=== PATIENT | female | born 1995 | race Caucasian/White ===

== ENCOUNTER 2017-01-29 12:21 | Emergency (ER) | payer OTHER ==
[2017-01-29 12:34] VITALS: BP 134/82
[2017-01-29 13:10] LABS: Urine Bilirubin Negative (Negative); Urine Glucose Negative (Negative); Urine Nitrite Negative (Negative)
== END 2017-01-29 14:54 | disposition left against medical advice (07) ==
LOC: ED 12:21
DX: R10.9 Unspecified abdominal pain (principal)
CPT/HCPCS: 81003; 99282

== ENCOUNTER 2017-05-02 16:08 | Emergency (ER) | payer SELFPAY ==
[2017-05-02 16:57] VITALS: BP 137/76
--- NOTE | 2017-05-02 17:26 | UC ---
Eye Complaint HPI - HPI Summary HPI Summary: 21 y/o female presents to the urgent care c/o LT eye pain with swelling sine 04/30/2017. S Pain has worsen since last night, 01/07. She took ibuprofen PO to alleviate symptoms. This morning she woke up with yellowish eye discharge in her eyelashes. Pt denies fever, visual disturbance, photophobia, SANTOS, URI, SOB, chest pain, N/V/D - History of Current Complaint Chief Complaint: UCEye Stated Complaint: EYE PAIN Time Seen by Provider: 05/02/17 17:19 Hx Obtained From: Patient Hx Last Menstrual Period: 03/25/17 ?: No Onset/Duration: Gradual Onset, Lasting Days - 3 days, Still Present, Worse Since - last night Timing: Constant Severity Initially: Mild Severity Currently: Moderate Pain Intensity: 8 Pain Scale Used: 0-10 Numeric Location of Injury: Eye Lid (upper) - Left upper eye lid with mild swelling and pain Character: Sharp Aggravating Factor(s): Blinking Alleviating Factor(s): Nothing Associated Signs And Symptoms: Positive: Drainage (Purulent) - yelowish discharge this morning when woke up, Swelling - mild. Negative: Fever - Risk Factors Penetrating Injury Risk Factor: Negative Acute Glaucoma Risk Factors: Negative Optic Artery Occlusion Risk Factors: Negative - Allergies/Home Medications Allergies/Adverse Reactions: Allergies Allergy/AdvReac Type Severity Reaction Status Date / Time Penicillins Allergy Mild Diarrhea Verified 04/11/16 09:24 Home Medications: Home Medications medroxyPROGESTERone TAB* [Provera TAB*] 10 mg PO SEE INSTRUCTIONS 05/02/17 [ History Confirmed 05/02/17] metFORMIN* [Glucophage 500 MG TAB *] 500 mg PO BID 05/02/17 [History Confirmed 05/02/17] PMH/Surg Hx/FS Hx/Imm Hx Previously Healthy: Yes Other Endocrine History: PCOS - Surgical History Surgical History: Yes Surgery Procedure, Year, and Place: D&C UTERINE POLUP REMOVED - Family History Known Family History: Positive: None - Pt denies PMHX Negative: Cardiac Disease, Hypertension, Blood Disorder - Social History Occupation: Employed Full-time Lives: With Family Alcohol Use: Occasionally Substance Use Type: None Smoking Status (MU): Light Every Day Tobacco Smoker Type: Cigarettes Amount Used/How Often: 1/2 PPD - QUIT SMOKING 7 WEEKS AGO Length of Time of Smoking/Using Tobacco: 4+ years Have You Smoked in the Last Year: Yes Review of Systems Constitutional: Negative Skin: Negative Eyes: Other - Left eye lid with swelling and pain ENT: Negative Respiratory: Negative Cardiovascular: Negative Gastrointestinal: Negative Genitourinary: Negative Motor: Negative Neurovascular: Negative Musculoskeletal: Negative Neurological: Negative Psychological: Negative Is Patient Immunocompromised?: No All Other Systems Reviewed And Are Negative: Yes Physical Exam Triage Information Reviewed: Yes Vital Signs: Initial Vital Signs Temp 98.0 F 05/02/17 16:50 Pulse 96 05/02/17 16:50 Resp 18 05/02/17 16:50 BP 137/76 05/02/17 16:50 Pulse Ox 100 05/02/17 16:50 - Additional Comments Vital Signs Reviewed: Yes General: Well appearing, well nourished obese female sitting in the examining table w/o any apparent pain distress Eyes: Positive: b/L Conjunctiva clear- Visual acuity: WNL,Visual doan: full to confrontation.mild periorbital soft tissue swelling at the latersal side of LT upper eyelid with erythema and white small pustule inside of eyelid, tender to palpation. PERRLA, EOMI intact w/out limitation or complaint of pain. eyelashes clear. mild tearing and yellowish drainage observed. No ciliary flush. No chemosis, No photophobia. Normal fundoscopic exam; no proptosis, exophthalmos, nystagmus. Rt eye lid WNL ENT: Positive: Normal ENT inspection, Hearing grossly normal, Pharynx normal, Nasal congestion, Nasal drainage - clear, TMs normal - B/L external ear canal clear , TM's WNL. Negative: Tonsillar swelling, Tonsillar exudate Neck: Positive: Supple, Nontender, No Lymphadenopathy Respiratory: Positive: Chest nontender, Lungs clear, Normal breath sounds, No respiratory distress Cardiovascular: Positive: RRR, No Murmur, Pulses Normal, Brisk Capillary Refill Abdomen Description: Positive: Nontender, No Organomegaly, Soft. Negative: CVA Tenderness (R), CVA Tenderness (L) Bowel Sounds: Positive: Present Musculoskeletal: Positive: Strength Intact, ROM Intact, No Edema Neurological Exam: Normal Psychological Exam: Normal Skin Exam: Normal Eye Complaint Course/Dx - Course Course Of Treatment: 21 y/o female presents to the urgent care c/o LT eye pain with swelling sine 04/30/2017. S Pain has worsen since last night, 01/07. She took ibuprofen PO to alleviate symptoms. This morning she woke up with yellowish eye discharge in her eyelashes. Pt denies fever, visual disturbance, photophobia, SANTOS, URI, SOB, chest pain, N/V/D. Hx obtained. Pt with a left eye lid hordeolum and Rt external ear canal cerumen impaction on examination. Pt Rx Erythormycin Ophthalmic Ointment. Pt advised to apply warm compresses and massage the eye with gentle pressure 4-5 times for 10-15min throughout the day. Then apply ABX and if not improvement of symptoms to f/u with well surveying engineer for further evaluation and treatment. Pt understood and agreed with plan of care. - Differential Dx/Diagnosis Differential Diagnosis/HQI/PQRI: Conjunctivitis, Foreign Body, Periorbital Cellulitis, Orbital Cellulitis, Other - hordeolum, Provider Diagnoses: 1- Left eye lid internal hordeolum. 2- Rt external ear canal with cerumen impaction. Discharge - Discharge Plan Condition: Stable Disposition: HOME Prescriptions: Carbamide Peroxide 6.5% OTIC* [DEBROX 6.5% Otic*] 5 drop RIGHT EAR BID #1 bottle Erythromycin OPTH OINT* [Erythromycin 0.5% OPTH OINT*] 1 applic LEFT EYE TID #1 ophth.oint Ibuprofen TAB* [Motrin TAB* 800 MG] 800 mg PO Q6H PRN #20 tab PRN Reason: Pain Patient Education Materials: Cerumen Impaction (ED), Stye (ED) Referrals: [facility] [Outside] - If Needed Franklyn Alanis MD [Medical Doctor] - If Needed Additional Instructions: 1-Please apply ophthalmic ointment in your LF eye as directed. Please apply warm compresses and massage the eye with gentle pressure 4-5 times for 10-15min throughout the day 2- If you do not improve or if symptoms worsen please f/u with well surveying engineer for further evaluation and treatment 3- apply otic drops on the RT ear canal as directed to clear your ear canal
== END 2017-05-02 17:45 | disposition home or self-care (01) ==
LOC: UCEAST 16:08
DX: H00.014 Hordeolum externum left upper eyelid (principal); F17.210 Nicotine dependence, cigarettes, uncomplicated; H61.21 Impacted cerumen, right ear
CPT/HCPCS: 99212; G0463

== ENCOUNTER 2018-07-13 21:51 | Emergency (ER) | payer SELFPAY ==
[2018-07-13] MEDS ORDERED: Metoclopramide IV* 5 MG/ML 2 ML VIAL IV SLOW PU ONE (22:09)
[2018-07-13] MEDS ORDERED: Ketorolac INJ* 30 MG/ML 1 ML VIAL IV PUSH ONE (22:10)
[2018-07-13] MEDS ORDERED: NS 0.9% 1000 ML** 1,000 ML IV ONE ×2 (22:10→22:55)
[2018-07-13] MEDS ORDERED: Morphine VIAL* 10 MG/ML 1 ML VIAL IV ONE (22:11)
--- NOTE | 2018-07-13 22:11 | ED ---
Abdominal Pain/Female - HPI Summary HPI Summary: This patient is a 22 year old F presenting to [facility] with a chief complaint of R flank pain that began at 1900 today. The patient rates the pain 10/10 in severity. Symptoms aggravated by nothing. Symptoms alleviated by nothing. Patient reports diaphoresis, nausea, and vomiting. Patient reports she has a history of kidney stones. - History of Current Complaint Chief Complaint: EDFlankPain Stated Complaint: VOMITING Time Seen by Provider: 07/13/18 22:05 Hx Obtained From: Patient Hx Last Menstrual Period: 03/25/17 ?: No Onset/Duration: Sudden Onset, Lasting Hours, Still Present Timing: Constant Severity Initially: Severe Severity Currently: Severe Pain Intensity: 10 Pain Scale Used: 0-10 Numeric Location: Flank Radiates: No Aggravating Factor(s): Nothing Alleviating Factor(s): Nothing Associated Signs and Symptoms: Positive: Diaphoresis, Nausea, Vomiting Allergies/Adverse Reactions: Allergies Allergy/AdvReac Type Severity Reaction Status Date / Time Penicillins Allergy Diarrhea Verified 07/13/18 21:55 PMH/Surg Hx/FS Hx/Imm Hx Previously Healthy: No Endocrine/Hematology History: Denies: Hx Diabetes, Hx Thyroid Disease Cardiovascular History: Denies: Hx Hypertension Respiratory History: Denies: Hx Asthma, Hx Chronic Obstructive Pulmonary Disease (COPD) GI History: Denies: Hx Ulcer - Surgical History Surgery Procedure, Year, and Place: D&C UTERINE POLUP REMOVED Infectious Disease History: No Infectious Disease History: Denies: Hx Clostridium Difficile, Hx Hepatitis, Hx Human Immunodeficiency Virus (HIV), Hx of Known/Suspected MRSA, Hx Shingles, Hx Tuberculosis, Hx Known/ Suspected VRE, Hx Known/Suspected VRSA, History Other Infectious Disease, Traveled Outside the [place] in Last 30 Days - Family History Known Family History: Negative: Cardiac Disease, Hypertension, Blood Disorder - Social History Occupation: Employed Full-time Lives: With Family Alcohol Use: Occasionally Hx Substance Use: No Substance Use Type: Reports: None Hx Tobacco Use: Yes Smoking Status (MU): Light Every Day Tobacco Smoker Type: Cigarettes Amount Used/How Often: 1/2 PPD - QUIT SMOKING 7 WEEKS AGO Length of Time of Smoking/Using Tobacco: 4+ years Have You Smoked in the Last Year: Yes Review of Systems Positive: Skin Diaphoresis Positive: Abdominal Pain, Vomiting, Nausea All Other Systems Reviewed And Are Negative: Yes Physical Exam - Summary Physical Exam Summary: VITAL SIGNS: Reviewed. GENERAL: Patient is a well-developed and nourished female who is lying comfortable in the stretcher. Patient is not in any acute respiratory distress. HEAD AND FACE: No signs of trauma. No ecchymosis, hematomas or skull depressions. No sinus tenderness. EYES: PERRLA, EOMI x 2, No injected conjunctiva, no nystagmus. EARS: Hearing grossly intact. Ear canals and tympanic membranes are within normal limits. MOUTH: Oropharynx within normal limits. NECK: Supple, trachea is midline, no adenopathy, no JVD, no carotid bruit, no c- spine tenderness, neck with full ROM. CHEST: Symmetric, no tenderness at palpation LUNGS: Clear to auscultation bilaterally. No wheezing or crackles. CVS: Regular rate and rhythm, S1 and S2 present, no murmurs or gallops appreciated. ABDOMEN: Soft, R CVA tenderness and RLQ tenderness. No signs of distention. No rebound no guarding, and no masses palpated. Bowel sounds are normal. EXTREMITIES: FROM in all major joints, no edema, no cyanosis or clubbing. NEURO: Alert and oriented x 3. No acute neurological deficits. Speech is normal and follows commands. SKIN: Dry and warm Triage Information Reviewed: Yes Vital Signs On Initial Exam: Initial Vitals Temp Pulse Resp BP Pulse Ox 97.6 F 93 20 140/102 97 07/13/18 21:52 07/13/18 21:52 07/13/18 21:52 07/13/18 21:52 07/13/18 21:52 Vital Signs Reviewed: Yes Diagnostics - Vital Signs Vital Signs Temp Pulse Resp BP Pulse Ox 07/13/18 21:52 97.6 F 93 20 140/102 97 - Laboratory Result Diagrams: 07/13/18 22:27 07/13/18 22:27 Lab Statement: Any lab studies that have been ordered have been reviewed, and results considered in the medical decision making process. - CT CT Abdomen and Pelvis CT Interpretation Completed By: Radiologist Summary of CT Findings: CT abdomen and pelvis reveals, per radiologist, moderate right-sided hydronephrosis with a dilated ureter. Calcified lesion located in the right side of the pelvis which may be in the distal ureter. This calcified density was not seen on prior CT study of 11/26/2015. Multiple small. calcified stones located in the left kidney which are nonobstructing. The appendix is visualized and is normal in appearance. There is no abnormal bowel wall thickening suggesting enteritis or colitis. ED physician has reviewed this radiology report. Re-Evaluation - Re-Evaluation First Eval Re-Evaluation Time: 00:30 Comment: Discuss results of CT and plan for discharge. Abdominal Pain Fem Course/Dx - Course Course Of Treatment: This patient is a 22 year old F presenting to [facility] with a chief complaint of R flank pain that began at [address] abdomen and pelvis reveals, per radiologist, moderate right-sided hydronephrosis with a dilated ureter. Calcified lesion located in the right side of the pelvis which may be in the distal ureter. This calcified density was not seen on prior CT study of 11/26/2015. Multiple small. calcified stones located in the left kidney which are nonobstructing. The appendix is visualized and is normal in appearance. There is no abnormal bowel wall thickening suggesting enteritis or colitis. This patient will be discharged with instructions to follow up with urologist. Patient understands and agrees with this plan. - Diagnoses Differential Diagnosis: Positive: Other - colic urethral stone Provider Diagnoses: Urethral stone Discharge - Sign-Out/Discharge Documenting (check all that apply): Patient Departure - discharge Patient Received Moderate/Deep Sedation with Procedure: No - Discharge Plan Condition: Stable Disposition: HOME Prescriptions: Ibuprofen TAB* [Motrin TAB* 800 MG] 800 mg PO Q6H PRN #30 tab PRN Reason: Pain oxyCODONE/Acetamin 5/325 MG* [Percocet 5/325 TAB*] 1 tab PO Q6H PRN #10 tab MDD 4 PRN Reason: Pain Tamsulosin CAP* [Flomax CAP*] 0.4 mg PO BEDTIME #7 cap Patient Education Materials: Kidney Stones (ED) Forms: *Work Release Referrals: Antonio Quick MD [Medical Doctor] - (Follow up in 1-2 days.) Additional Instructions: RETURN TO THE EMERGENCY DEPARTMENT FOR CHANGING OR WORSENING SYMPTOMS. FOLLOW UP WITH DR. QUICK IN 1-2 DAYS. - Attestation Statements Document Initiated by Scribe: Yes Documenting Scribe: Eugenie Kaye Provider For Whom Scribe is Documenting (Include Credential): Dr. Abril Huddleston MD Scribe Attestation: I, Eugenie Kaye, scribed for Dr. Abril Huddleston MD on 07/14/18 at 0041. Status of Scribe Document: Ready
[2018-07-13 22:36] LABS: ABS Basophils 0 10^3/ul (0-0.2); ABS Eosinophils 0.1 10^3/ul (0-0.6); ABS Lymphocytes 1.1 10^3/ul (1.0-4.8); ABS Monocytes 0.6 10^3/ul (0-0.8); ABS Neutrophils 4.3 10^3/ul (1.5-7.7); ABS Nucleated RBC 0 10^3/ul; Eosinophil % 0.9 %; Hematocrit 41 % (35-47); Hemoglobin 13.5 g/dl (12.0-16.0); Mean Corpuscular HGB Conc 33 g/dl (31-36); Mean Corpuscular Hemoglobin 25 pg (27-31); Mean Corpuscular Volume 77 fL (80-97); Mean Platelet Volume 7.8 fL (7.4-10.4); Nucleated Red Blood Cells % 0; Platelet Count 230 10^3/ul (150-450); Red Blood Count 5.35 10^6/ul (4.00-5.40); Red Cell Distribution Width 14 % (10.5-15)
[2018-07-13 22:51] LABS: ALT 15 U/L (7-52); AST 18 U/L (13-39); Albumin 4.4 g/dL (3.2-5.2); Albumin/Globulin Ratio 1.4 (1-3); Alkaline Phosphatase 66 U/L (34-104); Amylase 24 U/L (29-103); Anion Gap 10 mmol/L (2-11); BUN/Creatinine Ratio 15.9 (8-20); Blood Urea Nitrogen 14 mg/dL (6-24); C Reactive Protein 12.98 mg/L (<8.01); CO2 Carbon Dioxide 24 mmol/L (22-32); Calcium 9.5 mg/dL (8.6-10.3); Chloride 107 mmol/L (101-111); EGFR African American 95.5 (>60); EGFR Non-African American 78.9 (>60); Globulin 3.2 g/dL (2-4); Glucose 107 mg/dL (70-100); Potassium 3.5 mmol/L (3.5-5.0); Sodium 141 mmol/L (135-145); Total Protein 7.6 g/dL (6.4-8.9)
[2018-07-13 22:57] LABS: HCG Pregnancy < 0.60 mIU/mL
[2018-07-13] MEDS ORDERED: Tamsulosin CAP* 0.4 MG PO ONE (23:45)
[2018-07-14 00:09] LABS: Urine Appearance Cloudy; Urine Bacteria Absent (Absent); Urine Bilirubin Negative (Negative); Urine Blood 3+ (Negative); Urine Color Amber; Urine Glucose Negative (Negative); Urine Ketones 1+ (Negative); Urine Nitrite Negative (Negative); Urine Protein 2+(100 mg/dL) (Negative); Urine Red Blood Cell 3+(>10/hpf) (Absent); Urine Specific Gravity 1.029 (1.010-1.030); Urine Squamous Epithelial Cell Present (Absent); Urine Urobilinogen Negative (Negative); Urine White Blood Cell Absent (Absent)
[2018-07-14 01:00] VITALS: BP 117/73
[2018-07-14] MEDS ORDERED: oxyCODONE/Acetamin 5/325 MG* TAB PO PRN (01:01)
[2018-07-14] MEDS ORDERED: oxyCODONE/Acetamin 5/325 MG* TAB ONE (01:04)
[2018-07-14] MEDS ORDERED: oxyCODONE TAB* 5 MG TAB PO PRN (01:09)
== END 2018-07-14 01:18 | disposition home or self-care (01) ==
LOC: ED 21:51
DX: N21.1 Calculus in urethra (principal); R61 Generalized hyperhidrosis; R11.2 Nausea with vomiting, unspecified; Z88.0 Allergy status to penicillin; Z87.891 Personal history of nicotine dependence
CPT/HCPCS: 36415; 74176; 80053; 81003; 81015; 82150; 83690; 84702; 85025; 86140; 96361; 96374; 96375; 99283; A9270-GY; J1885; J2270; J2765

== ENCOUNTER 2018-10-03 17:53 | Emergency (ER) | payer OTHER ==
[2018-10-03 18:35] VITALS: BP 116/78
--- NOTE | 2018-10-03 19:27 | UC ---
Hand/Wrist HPI - HPI Summary HPI Summary: 23-year-old female comes in with a chief complaint of right hand pain. 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 Her pain is primarily at the third knuckle. Patient has pain with attempted ecstatic extension and flexion of her fingers but mostly her second and third fingers. Denies any wrist pain is no skin break. No complaint of any numbness. - History Of Current Complaint Chief Complaint: UCUpperExtremity Stated Complaint: R HAND INJURY WC Time Seen by Provider: 10/03/18 19:15 Hx Last Menstrual Period: 09/11/18 Pain Intensity: 8 - Allergies/Home Medications Allergies/Adverse Reactions: Allergies Allergy/AdvReac Type Severity Reaction Status Date / Time Penicillins Allergy Diarrhea Verified 10/03/18 18:35 Home Medications: Home Medications NK [No Home Medications Reported] 10/03/18 [History Confirmed 10/03/18] PMH/Surg Hx/FS Hx/Imm Hx Previously Healthy: Yes - Surgical History Surgical History: Yes Surgery Procedure, Year, and Place: D&C UTERINE POLUP REMOVED - Family History Known Family History: Negative: Cardiac Disease, Hypertension, Blood Disorder - Social History Alcohol Use: Occasionally Substance Use Type: None Smoking Status (MU): Light Every Day Tobacco Smoker Type: Cigarettes Amount Used/How Often: 1/2 PPD - QUIT SMOKING 7 WEEKS AGO Length of Time of Smoking/Using Tobacco: 4+ years Have You Smoked in the Last Year: Yes Review of Systems All Other Systems Reviewed And Are Negative: Yes Constitutional: Positive: Negative Skin: Positive: Negative Eyes: Positive: Negative ENT: Positive: Negative Respiratory: Positive: Negative Cardiovascular: Positive: Negative Gastrointestinal: Positive: Negative Motor: Positive: Decreased ROM Neurovascular: Positive: Negative Musculoskeletal: Positive: Other: - SEE HPI Neurological: Positive: Negative Psychological: Positive: Negative Is Patient Immunocompromised?: No Physical Exam Triage Information Reviewed: Yes Appearance: Well-Appearing, Well-Nourished, Pain Distress - MILD WITH RT HAND ROM Vital Signs: Initial Vital Signs Temp 98.0 F 10/03/18 18:31 Pulse 70 10/03/18 18:31 Resp 18 10/03/18 18:31 BP 116/78 10/03/18 18:31 Pulse Ox 100 10/03/18 18:31 Vital Signs Reviewed: Yes Eye Exam: Normal Eyes: Positive: Conjunctiva Clear Neck: Positive: Supple Respiratory: Positive: No respiratory distress Musculoskeletal: Positive: Other: - Right hand is tender to palpation over the dorsum of the second third MCPs. Wrist is nontender with full range of motion. Patient's unable to fully extend or fully flex her second third fingers. There is no skin break. No sensation deficit. Tendons are appear intact on exam. Neurological: Positive: Alert Psychological Exam: Normal Psychological: Positive: Age Appropriate Behavior Skin Exam: Normal Hand/Wrist Course/Dx - Course Course Of Treatment: I discussed the x-rays with the patient. I do not see any fractures radiologist reading is pending. Appears the patient has sprained her tendons primarily to her third finger. Patient was splinted the second and third fingers by nursing patient neurovascular intact after placement of splint. Plan is ice anti-inflammatories elevation the splint and follow-up with orthopedics if there is any fracture seen by radiology or if the patient does not improve. - Differential Dx/Diagnosis Provider Diagnosis: Sprain of right hand, Right hand tendonitis Discharge - Sign-Out/Discharge Documenting (check all that apply): Patient Departure All imaging exams completed and their final reports reviewed: No - Discharge Plan Condition: Stable Disposition: HOME Patient Education Materials: Hand Sprain (ED) Forms: *Work Release Referrals: Sarah Santoro MD [Medical Doctor] - Additional Instructions: FOLLOW UP WITH ORTHOPEDICS IF NOT COMPLETELY IMPROVED. GET REEVALUATED SOONER IF YOUR CONDITION WORSENS OR ANY QUESTIONS OR CONCERNS. - Billing Disposition and Condition Condition: STABLE Disposition: Home
--- NOTE | 2018-10-04 12:55 | UC ---
- Progress Note Progress Note: RADIOLOGY REPORT REVIEWED. NO EVIDENCE FOR FRACTURE. NO CHANGE IN MGMT. Course/Dx - Diagnoses Provider Diagnoses: Sprain of right hand, Right hand tendonitis Discharge - Sign-Out/Discharge Documenting (check all that apply): Post-Discharge Follow Up All imaging exams completed and their final reports reviewed: Yes - Discharge Plan Condition: Stable Disposition: HOME Patient Education Materials: Hand Sprain (ED) Forms: *Work Release Referrals: Sarah Santoro MD [Medical Doctor] - Additional Instructions: FOLLOW UP WITH ORTHOPEDICS IF NOT COMPLETELY IMPROVED. GET REEVALUATED SOONER IF YOUR CONDITION WORSENS OR ANY QUESTIONS OR CONCERNS. - Billing Disposition and Condition Condition: STABLE Disposition: Home
== END 2018-10-03 19:30 | disposition home or self-care (01) ==
LOC: UCEAST 17:53
DX: S63.91XA Sprain of unspecified part of right wrist and hand, initial encounter (principal); W31.82XA Contact with other commercial machinery, initial encounter; Y93.G1 Activity, food preparation and clean up; Y92.9 Unspecified place or not applicable; Y99.0 Civilian activity done for income or pay; M77.9 Enthesopathy, unspecified; Z88.0 Allergy status to penicillin; F17.210 Nicotine dependence, cigarettes, uncomplicated
CPT/HCPCS: 99211; G0463

== ENCOUNTER 2018-12-01 11:01 | Emergency (ER) | payer SELFPAY ==
[2018-12-01 11:11] VITALS: BP 108/63
--- NOTE | 2018-12-01 11:29 | UC ---
Ear Complaint HPI - HPI Summary HPI Summary: 2 days after swimming noticed R ear pain. Concerned for infection or block. denies change in hearing. . - History of Current Complaint Chief Complaint: UCEar Stated Complaint: EAR ACHE Time Seen by Provider: 12/01/18 11:29 Hx Obtained From: Patient Hx Last Menstrual Period: 11/30/18 Pain Intensity: 6 Pain Scale Used: 0-10 Numeric Aggravating Factors: Nothing Alleviating Factors: Nothing Associated Signs/Symptoms: Negative: Hearing Loss, Trauma to Ear, URI Symptoms - Allergies/Home Medications Allergies/Adverse Reactions: Allergies Allergy/AdvReac Type Severity Reaction Status Date / Time Penicillins Allergy Diarrhea Verified 12/01/18 11:12 PMH/Surg Hx/FS Hx/Imm Hx - Additional Past Medical History Additional PMH: no chronic conditions. Previously Healthy: Yes - Surgical History Surgical History: Yes Surgery Procedure, Year, and Place: D&C UTERINE POLUP REMOVED - Family History Known Family History: Negative: Cardiac Disease, Hypertension, Blood Disorder - Social History Alcohol Use: Occasionally Substance Use Type: None Smoking Status (MU): Light Every Day Tobacco Smoker Type: Cigarettes Amount Used/How Often: 1/2 PPD - QUIT SMOKING 7 WEEKS AGO Length of Time of Smoking/Using Tobacco: 4+ years Have You Smoked in the Last Year: Yes Review of Systems All Other Systems Reviewed And Are Negative: Yes Constitutional: Negative: Fever ENT: Positive: Ear Ache - R. Negative: Dental Pain, Sore Throat Respiratory: Positive: Negative Cardiovascular: Positive: Negative Gastrointestinal: Positive: Negative Neurological: Negative: Headache Physical Exam Triage Information Reviewed: Yes Appearance: Well-Appearing Vital Signs: Initial Vital Signs Temp 98.1 F 12/01/18 11:05 Pulse 77 12/01/18 11:05 Resp 17 12/01/18 11:05 BP 108/63 12/01/18 11:05 Pulse Ox 100 12/01/18 11:05 Vital Signs Reviewed: Yes ENT: Positive: TMs normal - left is normal., Other - R TM normal w/ canal showing inflammation/redness. pain upon insertion of otoscope. Neck: Positive: Supple, Nontender, No Lymphadenopathy Ear Complaint Course/Dx - Course Course Of Treatment: R ear pain, acute. Upon examination there was inflammation pointing towards OE. Will give topical antibx. Vitals are good. - Differential Dx/Diagnosis Differential Diagnosis/HQI/PQRI: Barotrauma, Cerumen Impaction, Otitis Externa Provider Diagnosis: Right otitis externa Discharge - Sign-Out/Discharge Documenting (check all that apply): Patient Departure All imaging exams completed and their final reports reviewed: No Studies - Discharge Plan Condition: Good Disposition: HOME Prescriptions: Neomyc/Polym/HC 1% OTIC SUSP* [Cortisporin Otic Susp 1%*] 4 drop RIGHT EAR TID 7 Days #1 btl Patient Education Materials: Otitis Externa (ED) Referrals: [facility] [Outside] Additional Instructions: please follow up with your primary care if not improved. - Billing Disposition and Condition Condition: GOOD Disposition: Home
== END 2018-12-01 11:50 | disposition home or self-care (01) ==
LOC: UCEAST 11:01
DX: H60.91 Unspecified otitis externa, right ear (principal); F17.210 Nicotine dependence, cigarettes, uncomplicated; Z88.0 Allergy status to penicillin
CPT/HCPCS: 99212; G0463

== ENCOUNTER 2019-05-11 16:08 | Emergency (ER) | payer SELFPAY ==
[2019-05-11 16:29] VITALS: BP 115/70
--- NOTE | 2019-05-11 17:05 | UC ---
FLU HPI - HPI Summary HPI Summary: 23-year-old female presents with onset of general malaise, severe nasal congestion, runny nose, bilateral ear fullness, sore throat, chest tightness, and a productive cough yesterday. No history of asthma. Patient is a smoker. No known sick contact. Has not received her flu shot. Denies fever, chills, dysphagia, chest pain, palpitations, shortness of breath, abdominal pain, nausea , vomiting or diarrhea. - History of Current Complaint Chief Complaint: UCRespiratory Stated Complaint: URI Time Seen by Provider: 05/11/19 16:50 Hx Obtained From: Patient Hx Last Menstrual Period: 2 weeks ago Pain Intensity: 7 - Allergy/Home Medications Allergies/Adverse Reactions: Allergies Allergy/AdvReac Type Severity Reaction Status Date / Time Penicillins Allergy Diarrhea Verified 05/11/19 16:25 PMH/Surg Hx/FS Hx/Imm Hx Previously Healthy: Yes - Denies significant PMH - Surgical History Surgical History: Yes Surgery Procedure, Year, and Place: D&C UTERINE POLUP REMOVED - Family History Known Family History: Positive: Non-Contributory - Social History Occupation: Employed Full-time Lives: With Family Alcohol Use: Occasionally Substance Use Type: Marijuana Substance Use Comment - Amount & Last Used: daily Smoking Status (MU): Light Every Day Tobacco Smoker Type: Cigarettes Amount Used/How Often: 1/2 PPD - QUIT SMOKING 7 WEEKS AGO Length of Time of Smoking/Using Tobacco: 4+ years Have You Smoked in the Last Year: Yes Review of Systems All Other Systems Reviewed And Are Negative: Yes Constitutional: Negative: Fever, Chills Eyes: Negative: Drainage, Eye Redness ENT: Positive: Sore Throat, Ear Ache, Nasal Discharge, Sinus Congestion. Negative: Sinus Pain/Tenderness Respiratory: Positive: Cough. Negative: Shortness Of Breath Cardiovascular: Negative: Palpitations, Chest Pain Gastrointestinal: Negative: Abdominal Pain, Vomiting, Diarrhea, Nausea Genitourinary: Positive: Negative Musculoskeletal: Positive: Negative Neurological: Positive: Negative Is Patient Immunocompromised?: No Physical Exam - Summary Physical Exam Summary: GENERAL APPEARANCE: Well developed, well nourished, alert and cooperative, and appears to be in no acute distress. EYES: Conjunctiva clear. No drainage. EARS: External auditory canals and tympanic membranes clear, hearing grossly intact. NOSE: Moderate nasal congestion. Clear nasal discharge. THROAT: Pharyngeal erythema. No tonsilar inflammation, swelling, exudate, or lesions. Uvula midline. NECK: Neck supple, non-tender without lymphadenopathy. CARDIAC: Normal S1 and S2. No S3, S4 or murmurs. Rhythm is regular. There is no peripheral edema, cyanosis or pallor. Extremities are warm and well perfused. Capillary refill is less than 2 seconds. Peripheral pulses intact. LUNGS: Intermediate scattered wheezes bilaterally. No rales or rhonchi noted. Nonproductive cough. ABDOMEN: Positive bowel sounds. Soft, nondistended, nontender. No guarding or rebound. No masses or hepatosplenomegally. MUSKULOSKELETAL: ROM intact to all extremities. No joint erythema or tenderness. Normal muscular development. Normal gait. SKIN: Skin normal color, texture and turgor with no lesions or eruptions. Triage Information Reviewed: Yes Vital Signs: Initial Vital Signs Temp 98.3 F 05/11/19 16:25 Pulse 90 05/11/19 16:25 Resp 18 05/11/19 16:25 BP 115/70 05/11/19 16:25 Pulse Ox 99 05/11/19 16:25 Vital Signs Reviewed: Yes Flu Course/Dx - Course Course Of Treatment: 23-year-old female presents with onset of general malaise, severe nasal congestion, runny nose, bilateral ear fullness, sore throat, chest tightness, and a productive cough yesterday. No history of asthma. Patient is a smoker. No known sick contact. Has not received her flu shot. Denies fever, chills, dysphagia, chest pain, palpitations, shortness of breath, abdominal pain, nausea , vomiting or diarrhea. Afebrile. Vital signs stable. Patient hasn't moderate nasal congestion, clear nasal discharge, pharyngeal erythema without tonsillar swelling or exudate, no cervical lymphadenopathy, intermittent scattered bilateral wheezes, nonproductive cough, and otherwise unremarkable exam. Rapid flu test was negative. Recommending conservative treatment for a viral upper respiratory infection including albuterol inhaler 2 puffs every 4-6 hours as needed for shortness of breath or wheezing and Tessalon Perles one capsule every 8 hours as needed for cough. Patient is to return here or follow up with their primary care provider in 5-7 days if symptoms are not improving. Anticipatory guidance and warning symptoms are reviewed with the patient. Verbalizes understanding and agrees of care. - Differential Dx/Diagnosis Differential Diagnosis/HQI/PQRI: Bronchitis, Influenza, Pneumonia, Upper Respiratory Infection Provider Diagnosis: Viral URI Discharge ED - Sign-Out/Discharge Documenting (check all that apply): Patient Departure All imaging exams completed and their final reports reviewed: No Studies - Discharge Plan Condition: Stable Disposition: HOME Prescriptions: Albuterol HFA INHALER* [Ventolin HFA Inhaler*] 2 puff INH Q4H PRN #1 mdi PRN Reason: Sob/Wheezing Benzonatate CAP* [Tessalon 100 MG CAP*] 100 mg PO TID PRN #21 cap PRN Reason: Cough Patient Education Materials: Upper Respiratory Infection (ED) Forms: *Work Release Referrals: No Primary Care Phys,NOPCP [Primary Care Provider] - Additional Instructions: The rapid flu test performed in the clinic today was negative. Your history and exam are consistent with a viral upper respiratory infection. Viral infections do not respond to antibiotics and are limited to the treatment of symptoms. Viral infections typically run their course in 7-10 days. Drink plenty of fluids to avoid dehydration especially if you are running any fever. Use albuterol inhaler 2 puff every 4-6 hours as needed for shortness of breath, chest tightness, or wheezing. Use Tessalon Perles 1 capsule every 8 hours as needed for cough. Use an over the counter decongestant such as Sudafed according to directions as needed for congestion. Take over the counter acetaminophen (Tylenol) or ibuprofen (Advil, Motrin) according to directions as needed for pain or fever. Use salt water gargles several times a day if you have a sore throat. You may also use Chloraseptic spray or Cepacol lonzenges according to directions which contain a numbing medication and can provide some temporary relief from your sore throat. Follow up with your primary care provider in 5-7 days if symptoms persist. Seek immediate medical attention in the emergency room if you have fever greater than 100.5 F despite taking acetaminophen or ibuprofen, have chest pain , difficulty breathing, are unable to swallow, or have any worsening of symptoms. - Billing Disposition and Condition Condition: STABLE Disposition: Home - Attestation Statements Provider Attestation: Per institutional requirements, I have reviewed the chart, however, I was not consulted specifically or made aware of this patient by the midlevel provider. I did not personally evaluate, interact with , or disposition this patient.
[2019-05-11 17:11] LABS: Influenza A Molecular NEGATIVE (Negative); Influenza B Molecular NEGATIVE (Negative)
== END 2019-05-11 17:40 | disposition home or self-care (01) ==
LOC: UCEAST 16:08
DX: J06.9 Acute upper respiratory infection, unspecified (principal); J02.9 Acute pharyngitis, unspecified; R07.89 Other chest pain; H93.8X3 Other specified disorders of ear, bilateral; F17.210 Nicotine dependence, cigarettes, uncomplicated; Z88.0 Allergy status to penicillin
CPT/HCPCS: 99212; G0463

== ENCOUNTER 2019-07-22 12:13 | Emergency (ER) | payer MEDICAID ==
[2019-07-22 12:43] LABS: ABS Eosinophils 0.1 10^3/ul (0-0.6); ABS Monocytes 0.6 10^3/ul (0-0.8); ABS Neutrophils 5.1 10^3/ul (1.5-7.7); Eosinophil % 1.9 %; Hematocrit 40 % (35-47); Hemoglobin 13.2 g/dL (12.0-16.0); Mean Corpuscular HGB Conc 33 g/dL (31-36); Mean Corpuscular Hemoglobin 26 pg (27-31); Mean Corpuscular Volume 79 fL (80-97); Mean Platelet Volume 7.9 fL (7.4-10.4); Platelet Count 222 10^3/uL (150-450); Red Blood Count 5.09 10^6 /uL (3.70-4.87); Red Cell Distribution Width 14 % (10-15)
--- NOTE | 2019-07-22 12:44 | ED ---
- HPI Summary HPI Summary: This pt is a 23 Y/O F presenting to [facility] with a CC of darkened blood following a pap smear. She received her pap smear yesterday and states that she was told to expect some bleeding. This morning, when she woke up the blood was darker and much thicker than the prior day. She states that she has suprapubic tenderness that is rated a 3/10 in severity. She states that she is currently 8 weeks . She denies any vaginal discharge. She also denies any fevers, chills, headaches, N/V, and CP. She has a Hx of kidney stones. She has no aggravating or alleviating factors. She states that this is her first and currently has a GPA of 1,0,0. - History of Current Complaint Chief Complaint: EDOBProblems Stated Complaint: 8 WEEKS PREG BLEEDING Time Seen by Provider: 07/22/19 12:17 Hx Obtained From: Patient Chief Complaint: Vaginal Bleeding Onset/Duration: Started Hours Ago - when she woke up, Still Present Timing: Constant Severity: Mild Current Severity: Mild Pain Intensity: 3 Location of Pain: Suprapubic Character: Cramping Aggravating Factors: Nothing Alleviating Factors: Nothing Associated Signs and Symptoms: Positive: Negative - fevers, chills, headaches, N /V, and CP, Vaginal Bleeding or Discharge. Negative: Fever - Assessment Hx Now: Yes - 6 weeks - Allergies/Home Medications Allergies/Adverse Reactions: Allergies Allergy/AdvReac Type Severity Reaction Status Date / Time Penicillins Allergy Diarrhea Verified 05/11/19 16:25 Home Medications: Home Medications Albuterol HFA INHALER* [Ventolin HFA Inhaler*] 2 puff INH Q4H PRN #1 mdi [Rx] Benzonatate CAP* [Tessalon 100 MG CAP*] 100 mg PO TID PRN #21 cap 05/11/19 [Rx] PMH/Surg Hx/FS Hx/Imm Hx Previously Healthy: Yes Endocrine/Hematology History: Denies: Hx Diabetes, Hx Thyroid Disease Cardiovascular History: Denies: Hx Hypertension Respiratory History: Denies: Hx Asthma, Hx Chronic Obstructive Pulmonary Disease (COPD) GI History: Denies: Hx Ulcer - Cancer History Hx Chemotherapy: No Hx Radiation Therapy: No - Surgical History Surgical History: Yes Surgery Procedure, Year, and Place: D&C UTERINE POLUP REMOVED - Immunization History Immunizations Up to Date: Yes Infectious Disease History: No Infectious Disease History: Denies: Hx Clostridium Difficile, Hx Hepatitis, Hx Human Immunodeficiency Virus (HIV), Hx of Known/Suspected MRSA, Hx Shingles, Hx Tuberculosis, Hx Known/ Suspected VRE, Hx Known/Suspected VRSA, History Other Infectious Disease, Traveled Outside the [place] in Last 30 Days - Family History Known Family History: Negative: Cardiac Disease, Hypertension - Social History Occupation: Employed Full-time Lives: With Family Alcohol Use: Occasionally Hx Substance Use: No Substance Use Type: Reports: Marijuana Substance Use Comment - Amount & Last Used: daily Hx Tobacco Use: Yes Smoking Status (MU): Light Every Day Tobacco Smoker Type: Cigarettes Amount Used/How Often: 1/2 PPD - QUIT SMOKING 7 WEEKS AGO Length of Time of Smoking/Using Tobacco: 4+ years Have You Smoked in the Last Year: Yes Review of Systems Negative: Fever, Chills Negative: Chest Pain Positive: Abdominal Pain - suprapubic. Negative: Vomiting, Nausea Genitourinary: Other - Vaginal bleeding Negative: Headache All Other Systems Reviewed And Are Negative: Yes Physical Exam - Summary Physical Exam Summary: Constitutional: Well-developed, Well-nourished, Alert. (-) Distressed Skin: Warm, Dry HENT: Normocephalic; Atraumatic Eyes: Conjunctiva normal Neck: Musculoskeletal ROM normal neck. (-) JVD, (-) Stridor, (-) Tracheal deviation Cardio: Rhythm regular, rate normal, Heart sounds normal; Intact distal pulses; Radial pulses are 2+ and symmetric. (-) Murmur Pulmonary/Chest wall: Effort normal. (-) Respiratory distress, (-) Wheezes, (-) Rales Abd: Soft, (-) tenderness, (-) Distension, (-) Guarding, (-) Rebound Musculoskeletal: (-) Edema Lymph: (-) Cervical adenopathy Neuro: Alert, Oriented x3 Psych: Mood and affect Normal Pelvic Exam: Mild amount of blood in the vaginal vault, No tenderness below the cervix - Physical Exam Triage Information Reviewed: Yes Vital Signs On Initial Exam: Temp Pulse Resp BP SpO2 FiO2 97.9 F 84 16 121/80 100 07/22/19 12:20 07/22/19 12:20 07/22/19 12:20 07/22/19 12:20 07/22/19 12:20 Vital Signs Reviewed: Yes Procedures - Sedation Patient Received Moderate/Deep Sedation with Procedure: No Diagnostics - Vital Signs Vital Signs Temp Pulse Resp BP Pulse Ox 07/22/19 12:20 97.9 F 84 16 121/80 100 - Laboratory Result Diagrams: 07/22/19 12:34 07/22/19 12:34 Lab Statement: Any lab studies that have been ordered have been reviewed, and results considered in the medical decision making process. - Ultrasound US Ultrasound Interpretation Completed By: Radiologist Summary of Ultrasound Findings: Impression: 1. Single live intrauterine estation at 9 weeks, 2 days by crown-rump length. 2. Small subchronic hemorrhage. ED physician has reviewed this report. Re-Evaluation - Re-Evaluation First Eval Re-Evaluation Time: 14:15 Comment: Pelvic exam performed. Patient safe for d/c. All results discussed. Course/Dx - Course Course Of Treatment: Patient is here with worsening vaginal bleeding following a Pap smear yesterday. Patient is 8 weeks and has not had an ultrasound yet to confirm her . Patient had blood cultures performed showed no evidence of anemia. Patient is Rh+. Patient had an ultrasound which showed an IUP of roughly 9 weeks that is viable. Patient's cervix was closed on pelvic exam. Patient was educated on pelvic rest and following up with her GEOLOGY TEACHER. - Diagnoses Provider Diagnoses: Intrauterine , Vaginal bleeding Discharge ED - Sign-Out/Discharge Documenting (check all that apply): Patient Departure - Patient will be discharged home. - Discharge Plan Condition: Stable Disposition: HOME Patient Education Materials: Non-Threatening First Trimester Vaginal Bleed (ED) , at 7 to 10 Weeks (ED) Referrals: Ryan Jerry MD [Primary Care Provider] - 3 Days Additional Instructions: Please stay on pelvic rest until you are cleared by your GEOLOGY TEACHER. This means no penetration of any kind. Please come back to the emergency department if you are bleeding 1 pad per hour or more, you are experiencing abdominal pain, or there are any other concerning symptoms that appear. - Billing Disposition and Condition Condition: STABLE Disposition: Home - Attestation Statements Document Initiated by Scribe: Yes Documenting Scribe: Radha Hawthorne Provider For Whom Scribe is Documenting (Include Credential): Stanley Barber MD Scribe Attestation: I, Radha Hawthorne, scribed for Stanley Barber MD on 07/22/19 at 1816. Scribe Documentation Reviewed: Yes Provider Attestation: The documentation as recorded by the scribe, Radha Hawthorne accurately reflects the service I personally performed and the decisions made by me, Stanley Barber MD Status of Scribe Document: Viewed
[2019-07-22 12:59] LABS: Albumin 4.4 g/dL (3.2-5.2); Albumin/Globulin Ratio 1.4 (1-3); BUN/Creatinine Ratio 14.3 (8-20); Calcium 9.2 mg/dL (8.6-10.3); EGFR African American 139.3 (>60); EGFR Non-African American 115.1 (>60); Globulin 3.1 g/dL (2-4); Potassium 4.5 mmol/L (3.5-5.0); Total Bilirubin 0.5 mg/dL (0.2-1.0); Total Protein 7.5 g/dL (6.4-8.9)
[2019-07-22 15:15] VITALS: BP 106/68
[2019-07-24 13:55] LABS: Trichomonas vag NAA Female Negative (Negative)
[2019-07-24 14:15] LABS: Chlamydia trachomatis NAA Negative (Negative); Neisseria gonorrhoeae (GC) NAA Negative (Negative)
--- NOTE | 2019-07-24 16:25 | ED ---
Imaging and Labs Follow Up Follow Up Type: Labs/Cultures Labs/Culture Result: Vaginal culture positive for gardnerella. Patient Communication/Plan: Called and spoke with pt. today at 1622. Will tx with pino. Provider Diagnoses: Intrauterine , Vaginal bleeding
== END 2019-07-22 15:14 | disposition home or self-care (01) ==
LOC: ED 12:13
DX: O46.91 Antepartum hemorrhage, unspecified, first trimester (principal); Z3A.08 8 weeks gestation of pregnancy; R10.9 Unspecified abdominal pain; F17.210 Nicotine dependence, cigarettes, uncomplicated; Z88.0 Allergy status to penicillin
CPT/HCPCS: 36415; 76801; 80053; 84702; 85025; 86850; 86900; 86901; 87480; 87491; 87510; 87591; 87661; 99282

== ENCOUNTER 2019-08-01 21:42 | Emergency (ER) | payer MEDICAID ==
--- OUTSIDE RECORDS SUMMARY | 2019-08-01 22:04 | XMS REPORT ---
:1995 Author Name ERMELINDA MCFARLANE Address Unavailable Unavailable , Care Team Providers Name Role Phone ERMELINDA MCFARLANE Primary Care Physician Unavailable Allergies, Adverse Reactions, Alerts Allergy Code CodeSystem Reaction Severity Criticality Status Start Substance Date Moderate Medications Medication Medication Medication Start Stop Route Dose Status Fill Code CodeSystem Date Date Instructions RxNorm Relevant diagnostic tests/laboratory data Narrative No Information Procedures Procedure Code CodeSystem Target Date of Status Service Device Device Device Name Site Procedure Delivery Code Name UID Location SNOMED-CT () 2019-07-[address], [address] [id number] SNOMED-CT () 2019-07-[address], [address] [phone] Encounters/Encounter Diagnoses Encounter Encounter Diagnosis Diagnosis Diagnosis Date of Service Name Code Code Name CodeSystem Diagnosis Delivery Location SNOMEDCT 2019-07-28 [facility] [address] [place] [address], [address] Vital Signs No Information Social History Element Description Description Start End Code CodeSystem AdditionalInfo Date Date SexAssignedAtBirth Female 1995- F AdministrativeGender - Hospital Discharge Instructions Reason For Referral Medical Equipment FDA Assessments
--- OUTSIDE RECORDS SUMMARY | 2019-08-01 22:04 | XMS REPORT ---
[...] Delivery Code Name UID Location SNOMED-CT () 2019-07-[address], [address] [id number] SNOMED-CT () 2019-07-[address], [address] [id number] SNOMED-CT () 2019-07-[address], [address] [id number] Encounters/Encounter Diagnoses Encounter Encounter Diagnosis Diagnosis Diagnosis Date of Service Name Code Code Name CodeSystem Diagnosis Delivery Location SNOMED-CT 2019-07-28 [facility] [address] [place] [address], [address] Vital Signs No Information Social History Element Description Description Start End Code CodeSystem AdditionalInfo Date Date SexAssignedAtBirth Female F AdministrativeGender 08-03 Hospital Discharge Instructions Reason For Referral Medical Equipment FDA Assessments
[2019-08-01 22:22] LABS: ABS Eosinophils 0.1 10^3/ul (0-0.6); ABS Lymphocytes 1.6 10^3/ul (1.0-4.8); ABS Monocytes 0.7 10^3/ul (0-0.8); ABS Neutrophils 5.7 10^3/ul (1.5-7.7); Eosinophil % 1.8 %; Hematocrit 35 % (35-47); Hemoglobin 11.7 g/dL (12.0-16.0); Lymphocyte % 19.4 %; Mean Corpuscular HGB Conc 34 g/dL (31-36); Mean Corpuscular Hemoglobin 26 pg (27-31); Mean Corpuscular Volume 77 fL (80-97); Mean Platelet Volume 7.9 fL (7.4-10.4); Platelet Count 210 10^3/uL (150-450); Red Cell Distribution Width 14 % (10-15); White Blood Count 8.1 10^3/uL (3.5-10.8)
[2019-08-01 22:38] LABS: Albumin/Globulin Ratio 1.4 (1-3); BUN/Creatinine Ratio 25.4 (8-20); Calcium 9.2 mg/dL (8.6-10.3); EGFR African American 139.3 (>60); EGFR Non-African American 115.1 (>60); Globulin 2.8 g/dL (2-4); Potassium 3.9 mmol/L (3.5-5.0); Total Bilirubin 0.2 mg/dL (0.2-1.0); Total Protein 6.8 g/dL (6.4-8.9)
--- NOTE | 2019-08-01 23:23 | ED ---
- HPI Summary HPI Summary: 23-year-old female presents with vaginal bleeding today. She is 10 weeks . She denies abdominal pain. States that she stood up and felt the bleeding. No clots. States she did bleed before a couple weeks ago but was reassured by her neuropsychology director. She denies any nausea or vomiting. No fevers. No abnormal vaginal discharge. No urinary symptoms. - History of Current Complaint Chief Complaint: EDVaginalBleeding Stated Complaint: POSS MISCARRIAGE PER PT Time Seen by Provider: 08/01/19 21:48 Pain Intensity: 0 - Assessment Hx Now: Yes - 6 weeks Hx Hysterectomy: No - Allergies/Home Medications Allergies/Adverse Reactions: Allergies Allergy/AdvReac Type Severity Reaction Status Date / Time Penicillins Allergy Diarrhea Verified 08/01/19 22:34 Home Medications: Home Medications NK [No Home Medications Reported] 08/01/19 [History Confirmed 08/01/19] PMH/Surg Hx/FS Hx/Imm Hx Endocrine/Hematology History: Denies: Hx Diabetes, Hx Thyroid Disease Cardiovascular History: Denies: Hx Hypertension Respiratory History: Denies: Hx Asthma, Hx Chronic Obstructive Pulmonary Disease (COPD) GI History: Denies: Hx Ulcer - Cancer History Hx Chemotherapy: No Hx Radiation Therapy: No - Surgical History Surgery Procedure, Year, and Place: D&C UTERINE POLUP REMOVED Infectious Disease History: No Infectious Disease History: Denies: Hx Clostridium Difficile, Hx Hepatitis, Hx Human Immunodeficiency Virus (HIV), Hx of Known/Suspected MRSA, Hx Shingles, Hx Tuberculosis, Hx Known/ Suspected VRE, Hx Known/Suspected VRSA, History Other Infectious Disease, Traveled Outside the [place] in Last 30 Days - Family History Known Family History: Negative: Cardiac Disease, Hypertension - Social History Alcohol Use: Occasionally Hx Substance Use: No Substance Use Type: Reports: Marijuana Substance Use Comment - Amount & Last Used: daily Hx Tobacco Use: Yes Smoking Status (MU): Light Every Day Tobacco Smoker Type: Cigarettes Amount Used/How Often: 1/2 PPD - QUIT SMOKING 7 WEEKS AGO Length of Time of Smoking/Using Tobacco: 4+ years Have You Smoked in the Last Year: Yes Review of Systems Negative: Fever Negative: Chest Pain Negative: Shortness Of Breath Positive: Other - vaginal bleeding. Negative: Abdominal Pain All Other Systems Reviewed And Are Negative: Yes Physical Exam - Physical Exam Triage Information Reviewed: Yes Vital Signs Reviewed: Yes Appearance: Positive: Well-Appearing Skin: Positive: Warm, Dry Head/Face: Positive: Normal Head/Face Inspection Eyes: Positive: Normal, Conjunctiva Clear ENT: Positive: Pharynx normal Respiratory/Lung Sounds: Positive: Clear to Auscultation, Breath Sounds Present Cardiovascular: Positive: Normal, RRR Abdomen Description: Positive: Nontender, Soft Bowel Sounds: Positive: Present Pelvic Exam: External Exam Normal, Speculum Exam Normal, Blood - old, Other - os closed Musculoskeletal: Positive: Normal Psychiatric: Positive: Normal Procedures - Sedation Patient Received Moderate/Deep Sedation with Procedure: No Diagnostics - Vital Signs Vital Signs Temp Pulse Resp BP Pulse Ox 08/01/19 23:05 102 18 132/85 98 08/01/19 21:43 98 F 108 20 138/97 98 - Laboratory Lab Results: Lab Results 08/01/19 08/01/19 08/01/19 Range/Units 22:12 22:12 22:40 WBC 8.1 (3.5-10.8) 10^3/uL RBC 4.50 (3.70-4.87) 10^6 /uL Hgb 11.7 L (12.0-16.0) g/dL Hct 35 (35-47) % MCV 77 L (80-97) fL MCH 26 L (27-31) pg MCHC 34 (31-36) g/dL RDW 14 (10-15) % Plt Count 210 (150-450) 10^3/uL MPV 7.9 (7.4-10.4) fL Neut % (Auto) 70.2 % Lymph % (Auto) 19.4 % [place] % (Auto) 8.3 % Eos % (Auto) 1.8 % Baso % (Auto) 0.3 % Absolute Neuts (auto) 5.7 (1.5-7.7) 10^3/ul Absolute Lymphs (auto) 1.6 (1.0-4.8) 10^3/ul Absolute Monos (auto) 0.7 (0-0.8) 10^3/ul Absolute Eos (auto) 0.1 (0-0.6) 10^3/ul Absolute Basos (auto) 0.0 (0-0.2) 10^3/ul Absolute Nucleated RBC 0.0 10^3/ul Nucleated RBC % 0.0 Sodium 134 L (135-145) mmol/L Potassium 3.9 (3.5-5.0) mmol/L Chloride 103 (101-111) mmol/L Carbon Dioxide 24 (22-32) mmol/L Anion Gap 7 (2-11) mmol/L BUN 16 (6-24) mg/dL Creatinine 0.63 (0.51-0.95) mg/dL Est GFR ( Amer) 139.3 (>60) Est GFR (Non-Af Amer) 115.1 (>60) BUN/Creatinine Ratio 25.4 H (8-20) Glucose 83 (70-100) mg/dL Calcium 9.2 (8.6-10.3) mg/dL Total Bilirubin 0.20 (0.2-1.0) mg/dL AST 19 (13-39) U/L ALT 25 (7-52) U/L Alkaline Phosphatase 44 (34-104) U/L Total Protein 6.8 (6.4-8.9) g/dL Albumin 4.0 (3.2-5.2) g/dL Globulin 2.8 (2-4) g/dL Albumin/Globulin Ratio 1.4 (1-3) Beta HCG, Quant 03377.00 mIU/mL C.trachomatis (Amp Det) Pending N.gonorrhoeae (Amp Det) Pending Result Diagrams: 08/01/19 22:12 08/01/19 22:12 Lab Statement: Any lab studies that have been ordered have been reviewed, and results considered in the medical decision making process. - Ultrasound No standard instances Ultrasound Interpretation Completed By: Radiologist Summary of Ultrasound Findings: IMPRESSION: 1. Viable intrauterine with an ultrasound age of 10 weeks 3 days which is concordant with the clinical age. 2. Small subchorionic implantation hemorrhage. Course/Dx - Course Course Of Treatment: 23-year-old female presents with vaginal bleeding today. She is 10 weeks . She denies abdominal pain. States that she stood up and felt the bleeding. No clots. States she did bleed before a couple weeks ago but was reassured by her neuropsychology director. She denies any nausea or vomiting. No fevers. No abnormal vaginal discharge. No urinary symptoms. On exam nontender abdomen. lab work wnl. blood type A positive. Ultrasound shows small subchronic hemorrhage. on pelvic blood present but no active bleeding. Cervical os is closed. told follow up with OB. Patient understands agrees with plan. - Differential Diagnosis/HQI/PQRI: Missed , Spontaneous , Threatened - Diagnoses Provider Diagnoses: Subchorionic hemorrhage, Discharge ED - Sign-Out/Discharge Documenting (check all that apply): Patient Departure - Discharge Plan Condition: Good Disposition: HOME Patient Education Materials: Subchorionic Hemorrhage (ED) Forms: *Work Release Referrals: Ryan Jerry MD [Primary Care Provider] - Additional Instructions: follow up with ob Return to ED if develop any new or worsening symptoms - Billing Disposition and Condition Condition: GOOD Disposition: Home
[2019-08-01 23:31] VITALS: BP 135/72
[2019-08-02 14:08] LABS: Trichomonas vag NAA Female Negative (Negative)
[2019-08-02 14:23] LABS: Chlamydia trachomatis NAA Negative (Negative); Neisseria gonorrhoeae (GC) NAA Negative (Negative)
--- NOTE | 2019-08-03 14:47 | ED ---
Imaging and Labs Follow Up Follow Up Type: Labs/Cultures Labs/Culture Result: + fransisca on vaginal culture. Patient Communication/Plan: Pt. currently . I called and spoke with pt. today at 1445. Pt. states she has been having vaginal itching and irritation. Will tx with clotrimazole cream. Pt. will f.u with OB. Provider Diagnoses: Subchorionic hemorrhage,
== END 2019-08-01 23:30 | disposition home or self-care (01) ==
LOC: ED 21:42
DX: O20.8 Other hemorrhage in early pregnancy (principal); Z3A.10 10 weeks gestation of pregnancy; Z88.0 Allergy status to penicillin
CPT/HCPCS: 36415; 76801; 80053; 84702; 85025; 87480; 87491; 87510; 87591; 87661; 99282

== ENCOUNTER 2020-02-21 01:11 | Inpatient (IN) ==
[2020-02-21] MEDS ORDERED: Lactated Ringers 1000 ml BAG 1,000 ML IV ONE ×2 (02:47→03:57)
[2020-02-21 02:51] LABS: ABS Basophils 0.1 10^3/ul (0-0.2); ABS Eosinophils 0.2 10^3/ul (0-0.6); ABS Lymphocytes 1.6 10^3/ul (1.0-4.8); ABS Neutrophils 10.3 10^3/ul (1.5-7.7); Eosinophil % 1.3 %; Hematocrit 35 % (35-47); Hemoglobin 11.9 g/dL (12.0-16.0); Lymphocyte % 12.1 %; Mean Corpuscular HGB Conc 34 g/dL (31-36); Mean Corpuscular Hemoglobin 25 pg (27-31); Mean Corpuscular Volume 75 fL (80-97); Mean Platelet Volume 9.1 fL (7.4-10.4); Platelet Count 271 10^3/uL (150-450); Red Blood Count 4.73 10^6 /uL (3.70-4.87); Red Cell Distribution Width 14 % (10-15); White Blood Count 13.1 10^3/uL (3.5-10.8)
[2020-02-21] MEDS ORDERED: Lactated Ringers 1000 ml BAG 1,000 ML IV SCH ×3 (03:00→21:00)
[2020-02-21] MEDS ORDERED: OBEPIDURAL 250 ML EPIDURAL ONE (03:03)
[2020-02-21 03:26] LABS: Urine Benzodiazepine Screen None Detected (None Detect); Urine Opiates Screen None Detected (None Detect)
[2020-02-21] MEDS ORDERED: Lactated Ringers 1000 ml BAG 500 ML IV PRN ×2 (03:57)
[2020-02-21] MEDS ORDERED: EPHEDrine (Pressors) 50 MG/ML VIAL IV PUSH PRN ×2 (03:57)
[2020-02-21] MEDS ORDERED: Phenylephrine 40 mcg/mL 10mL (400mcg) SYRINGE IV PUSH PRN ×2 (03:57)
[2020-02-21] MEDS ORDERED: Sodium Citrate/Citric Acid LIQ 15 ML UDC PO PRN (03:57)
[2020-02-21] MEDS ORDERED: OBEPIDURAL 250 ML EPIDURAL SCH (04:00)
[2020-02-21] MEDS ORDERED: Lidocaine 2% PF 10 ML AMP ONE (06:20)
[2020-02-21] MEDS ORDERED: Lidocaine 2% w/ EPI 1:200,000 MPF 20 ML SDV VIAL ONE (06:23)
[2020-02-21] MEDS ORDERED: Clindamycin 900 MG/D5W BAG IVPB ONE (06:45)
[2020-02-21] MEDS ORDERED: Oxytocin 10 UNITS/ML 1 ML VIAL ONE (06:53)
[2020-02-21] MEDS ORDERED: Sterile Water for Inj 20 ML ONE (06:53)
[2020-02-21] MEDS ORDERED: Phenylephrine 40 mcg/mL 10mL (400mcg) SYRINGE ONE ×2 (06:53→07:37)
[2020-02-21] MEDS ORDERED: EPHEDrine (Pressors) 50 MG/ML VIAL ONE (06:53)
[2020-02-21] MEDS ORDERED: Morphine PF AMP (0.5MG/ML) 5 MG/10 ML AMP ONE (06:56)
[2020-02-21] MEDS ORDERED: Midazolam 5 mg/5 ml VIAL 1 mg/ml 5 ml VIAL (5 mg) ONE (06:56)
[2020-02-21] MEDS ORDERED: fentaNYL 100 mcg/2 ml 50 MCG/ML VIAL ONE (06:59)
[2020-02-21] MEDS ORDERED: GENTAMICIN ADULT IVPB ONE (07:00)
[2020-02-21] MEDS ORDERED: NS 0.9% IVPB ONE (07:00)
[2020-02-21] MEDS ORDERED: Acetaminophen IV 1 GM/100ML 100 ML ONE (07:52)
[2020-02-21] MEDS ORDERED: oxyCODONE/Acetamin 5/325 mg TAB PO PRN (07:57)
[2020-02-21] MEDS ORDERED: Ondansetron 4 mg VIAL 2 MG/ML 2 ml VIAL IV PRN (07:57)
[2020-02-21] MEDS ORDERED: diPHENhydraMINE IV 50 MG/ML 1 ml VIAL (BENADRYL) IV PRN (07:57)
[2020-02-21] MEDS ORDERED: Acetaminophen IV 1 GM/100ML 1,000 MG/100 ML VIAL IVPB ONE (07:57)
[2020-02-21] MEDS ORDERED: Naloxone 0.4 mg VIAL 0.4 mg/ml 1 ml VIAL IV PRN ×2 (07:57)
[2020-02-21] MEDS ORDERED: Varicella Virus Vaccine Live 0.5 ML VIAL SUBCUT ONE (17:33)
[2020-02-21] MEDS ORDERED: Witch Hazel PAD JAR TOPICAL PRN (20:07)
[2020-02-21] MEDS ORDERED: Glycerin ADULT 2.4 gm SUPP PR PRN (20:07)
[2020-02-21] MEDS ORDERED: Dibucaine 1% OINT 28.35 GM TUBE PR PRN (20:07)
[2020-02-22 07:08] LABS: ABS Eosinophils 0.1 10^3/ul (0-0.6); ABS Lymphocytes 1.1 10^3/ul (1.0-4.8); ABS Neutrophils 8.5 10^3/ul (1.5-7.7); Eosinophil % 1.2 %; Hematocrit 28 % (35-47); Hemoglobin 9.7 g/dL (12.0-16.0); Lymphocyte % 10.3 %; Mean Corpuscular HGB Conc 34 g/dL (31-36); Mean Corpuscular Hemoglobin 26 pg (27-31); Mean Corpuscular Volume 75 fL (80-97); Mean Platelet Volume 8.2 fL (7.4-10.4); Platelet Count 209 10^3/uL (150-450); Red Blood Count 3.79 10^6 /uL (3.70-4.87); Red Cell Distribution Width 14 % (10-15); White Blood Count 10.8 10^3/uL (3.5-10.8)
[2020-02-22] MEDS ORDERED: Influenza VAC *QUAD* 2020-21* 0.5 ML SYRINGE IM ONE (09:00)
[2020-02-23 08:11] VITALS: BP 107/64
== END 2020-02-23 16:21 | disposition home or self-care (01) | DRG 540 ==
LOC: MCHOBOUT 01:11 → MCHOB 02:45
PROVIDERS: ADMIT Obstetrics & Gynecology; ATTEND Obstetrics & Gynecology